=== PATIENT | female | born 1950 | race Caucasian/White ===

== ENCOUNTER 2021-05-19 17:10 | Inpatient (IN) | payer MEDICARE, OTHER ==
[2021-05-19] MEDS ORDERED: RX INFO: IV CONTRAST WAS GIVEN 1 EACH MISC MISCELLANE PRN (18:53)
[2021-05-19 19:22] LABS: Albumin 3.8 g/dL (3.5-5.0); Magnesium 2.3 mg/dL (1.6-2.3); Potassium 4.3 mmol/L (3.5-5.1); Total Bilirubin 0.2 mg/dL (0.2-1.3); Total Protein 6.3 g/dL (6.3-8.2)
[2021-05-19 19:24] LABS: Anisocytosis Slight; Basophils % (A) 1 %; Eosinophils # (A) 0.1 k/uL (0-0.7); Eosinophils % (A) 2 %; Hypochromasia Marked; Lymphocytes # (A) 1.8 k/uL (1.0-4.8); Lymphocytes % (A) 29 %; MCHC 30.2 g/dL (31.0-37.0); MCV 76.3 fL (80.0-100.0); Mean Platelet Volume 7.3; Microcytosis Slight; Monocytes # (A) 0.4 k/uL (0-1.0); Monocytes % (A) 7 %; Neutrophils # (A) 3.5 k/uL (1.3-7.7); Neutrophils % (A) 59 %; Platelet Count 475 k/uL (150-450); Poikilocytosis Slight; RBC 2.88 m/uL (3.80-5.40); RDW 17.2 % (11.5-15.5)
[2021-05-19 19:35] LABS: HGB 6.6 gm/dL (11.4-16.0); INR 0.9 (<1.2); Prothrombin Time 9.7 sec (9.0-12.0)
[2021-05-19 19:43] LABS: Partial Thromboplastin Time 20.4 sec (22.0-30.0)
--- NOTE | 2021-05-19 20:11 | CT ---
EXAMINATION TYPE: CT neck chest w con DATE OF EXAM: 05/19/2021 7:40 PM COMPARISON: None HISTORY: c/o neck pain, low HGB CT DLP: 1298.4 mGycm Automated exposure control for dose reduction was used. CONTRAST: CT scan of the neck and chest is performed following with IV Contrast, patient injected with 100 mL o f Isovue 300. Axial images are obtained, coronal and sagittal reformatted images are reviewed. FINDINGS: The chest shows no mass, there is no pleural or pericardial effusion. Subcentimeter nodule present in subpleural location on axial image 28 measures 5 to 6 mm right middle lobe, nodule on axia l image 27 is associated with the fissure and is felt likely to be benign. Indeterminate lung nodule present on axial image #12 measures 4 mm in the right upper lobe. There is a hiatal hernia with partial intrathoracic stomach. Aorta shows 3 super aortic branch vessel s. No mediastinal, axillary, or hilar adenopathy. Airway: No gross abnormality seen. Parotid/submandibular glands: No gross abnormality seen. Carotid/Vascular Structures: Unremarkable Osseous Structures: Degenerative disc changes are present visualized spine. Other: Upper abdomen shows questionable parapelvic cysts or pelvic caliectasis. There is a splenule s uspected in the splenic hilum. There is streak artifact due to patient's dental amalgam and earrings. Some atrophy noted within the left parietal lobe. IMPRESSION: Indeterminate pulmonary nodule, follow-up CT in 6-12 months recommended. Hiatal hernia w ith partial intrathoracic stomach. Additional findings above.
[2021-05-19] MEDS ORDERED: PANTOPRAZOLE 40 MG/10 ML VIAL IVP STA (20:21)
[2021-05-19] MEDS ORDERED: NALOXONE 0.4 MG/ML 1 ML VIAL IV PRN (20:51)
--- NOTE | 2021-05-19 20:57 | ED ---
General Adult HPI - General Chief complaint: Recheck/Abnormal Lab/Rx Stated complaint: low hemoglobin Time Seen by Provider: 05/19/21 18:34 Source: patient, RN notes reviewed, old records reviewed Mode of arrival: ambulatory Limitations: no limitations - History of Present Illness Initial comments: 71-year-old female who presents for evaluation of anemia. Patient had been told to present to the emergency department with a hemoglobin of 6.2. She is not on any anticoagulation. She states she has some mild exertional dyspnea. She had dark stool and had been on iron supplementation up to proximally 3 weeks ago. She's had no significant nausea or vomiting. No bright red rectal bleeding. No previous history of gastrointestinal hemorrhage. Additionally she had an outpatient x-ray that showed some evidence of tracheal deviation and is schedule d to receive CT of the neck and chest at an outside hospital tomorrow. She's had no difficulty swallowing. No change in speech. - Related Data Home Medications Medication Instructions Recorded Confirmed Ascorbic Acid [Vitamin C] 500 mg PO DAILY 05/19/21 05/19/21 Aspirin EC [Ecotrin Low Dose] 81 mg PO DAILY 05/19/21 05/19/21 Ferrous Sulfate [Feosol] 325 mg PO HS 05/19/21 05/19/21 Levothyroxine Sodium 125 mcg PO DAILY 05/19/21 05/19/21 Pravastatin Sodium [Pravachol] 20 mg PO DAILY 05/19/21 05/19/21 Vitamin E 400 unit PO HS 05/19/21 05/19/21 lisinopriL [Zestril] 10 mg PO DAILY 05/19/21 05/19/21 Allergies Allergy/AdvReac Type Severity Reaction Status Date / Time No Known Allergies Allergy Verified 05/19/21 20:18 Review of Systems ROS Statement: Those systems with pertinent positive or pertinent negative responses have been documented in the HPI. ROS Other: All systems not noted in ROS Statement are negative. Past Medical History Past Medical History: Hyperlipidemia, Thyroid Disorder History of Any Multi-Drug Resistant Organisms: None Reported Past Surgical History: Section Past Psychological History: No Psychological Hx Reported Smoking Status: Never smoker Past Alcohol Use History: None Reported Past Drug Use History: None Reported General Exam Limitations: no limitations General appearance: alert, in no apparent distress Head exam: Present: atraumatic, normocephalic Eye exam: Present: normal appearance, PERRL ENT exam: Present: normal exam Neck exam: Present: normal inspection. Absent: tenderness, meningismus Respiratory exam: Present: normal lung sounds bilaterally. Absent: respiratory distress, wheezes Cardiovascular Exam: Present: regular rate, normal rhythm GI/Abdominal exam: Present: soft. Absent: distended, tenderness Rectal exam: Present: normal inspection, heme (+) stool. Absent: black stool, bloody stool, hemorrhoids Extremities exam: Present: normal inspection, normal capillary refill Neurological exam: Present: alert, oriented X3, CN II-XII intact. Absent: motor sensory deficit Psychiatric exam: Present: normal affect, normal mood Skin exam: Present: warm, dry, intact. Absent: cyanosis, diaphoretic Course Vital Signs 05/19/21 18:18 Temperature 99.2 F Pulse Rate 77 Respiratory 18 Rate Blood Pressure 134/57 O2 Sat by Pulse 100 Oximetry EKG Findings - EKG Comments: EKG Findings:: EKG: Normal sinus rhythm, rate of 69, AR interval 162, QRS duration 86, QTC 435 Medical Decision Making - Medical Decision Making 71-year-old female with presented for evaluation of anemia, possible GI bleed. She has no melena, no bright red rectal bleeding. Her stool is Hemoccult positive. She has a hemoglobin of 6.6 which is microcytic. She is transfused one unit of packed RBCs in addition she is given Protonix. I discussed case with Dr. Santiago who will admit. The CT of her neck and chest has been ordered in the emergency department. There is no tracheal deviation, there is a pulmonary nodule which will require follow-up and there is a hiatal hernia. I discussed case with Dr. Munson who will see this patient in consultation regarding her GI bleed. Repeat hemoglobin has been ordered she will be continued on proton pump inhibitor. - Lab Data Result diagrams: 05/19/21 19:02 05/19/21 19:02 Lab Results 05/19/21 05/19/21 05/19/21 Range/Units 19:01 19:02 19:02 WBC 6.0 (3.8-10.6) k/uL RBC 2.88 L (3.80-5.40) m/uL Hgb 6.6 L* (11.4-16.0) gm/dL Hct 22.0 L (34.0-46.0) % MCV 76.3 L (80.0-100.0) fL MCH 23.0 L (25.0-35.0) pg MCHC 30.2 L (31.0-37.0) g/dL RDW 17.2 H (11.5-15.5) % Plt Count 475 H (150-450) k/uL MPV 7.3 Neutrophils % 59 % Lymphocytes % 29 % Monocytes % 7 % Eosinophils % 2 % Basophils % 1 % Neutrophils # 3.5 (1.3-7.7) k/uL Lymphocytes # 1.8 (1.0-4.8) k/uL Monocytes # 0.4 (0-1.0) k/uL Eosinophils # 0.1 (0-0.7) k/uL Basophils # 0.0 (0-0.2) k/uL Hypochromasia Marked Poikilocytosis Slight Anisocytosis Slight Microcytosis Slight PT 9.7 (9.0-12.0) sec INR 0.9 (<1.2) APTT 20.4 L (22.0-30.0) sec Sodium (137-145) mmol/L Potassium (3.5-5.1) mmol/L Chloride (98-107) mmol/L Carbon Dioxide (22-30) mmol/L Anion Gap mmol/L BUN (7-17) mg/dL Creatinine (0.52-1.04) mg/dL Est GFR (CKD-EPI)AfAm (>60 ml/min/1.73 sqM) Est GFR (CKD-EPI)NonAf (>60 ml/min/1.73 sqM) Glucose (74-99) mg/dL Plasma Lactic Acid Mauro (0.7-2.0) mmol/L Calcium (8.4-10.2) mg/dL Magnesium (1.6-2.3) mg/dL Total Bilirubin (0.2-1.3) mg/dL AST (14-36) U/L ALT (4-34) U/L Alkaline Phosphatase (38-126) U/L Troponin I (0.000-0.034) ng/mL Total Protein (6.3-8.2) g/dL Albumin (3.5-5.0) g/dL Stool Occult Blood (Negative) Blood Type Blood Type Confirm A Positive Blood Type Recheck Bld Type Recheck Status Antibody Screen Crossmatch Spec Expiration Date 05/19/21 05/19/21 05/19/21 Range/Units 19:02 19:02 19:02 WBC (3.8-10.6) k/uL RBC (3.80-5.40) m/uL Hgb (11.4-16.0) gm/dL Hct (34.0-46.0) % MCV (80.0-100.0) fL MCH (25.0-35.0) pg MCHC (31.0-37.0) g/dL RDW (11.5-15.5) % Plt Count (150-450) k/uL MPV Neutrophils % % Lymphocytes % % Monocytes % % Eosinophils % % Basophils % % Neutrophils # (1.3-7.7) k/uL Lymphocytes # (1.0-4.8) k/uL Monocytes # (0-1.0) k/uL Eosinophils # (0-0.7) k/uL Basophils # (0-0.2) k/uL Hypochromasia Poikilocytosis Anisocytosis Microcytosis PT (9.0-12.0) sec INR (<1.2) APTT (22.0-30.0) sec Sodium 135 L (137-145) mmol/L Potassium 4.3 (3.5-5.1) mmol/L Chloride 107 (98-107) mmol/L Carbon Dioxide 22 (22-30) mmol/L Anion Gap 6 mmol/L BUN 21 H (7-17) mg/dL Creatinine 0.80 (0.52-1.04) mg/dL Est GFR (CKD-EPI)AfAm 87 (>60 ml/min/1.73 sqM) Est GFR (CKD-EPI)NonAf 75 (>60 ml/min/1.73 sqM) Glucose 102 H (74-99) mg/dL Plasma Lactic Acid Mauro 0.9 (0.7-2.0) mmol/L Calcium 9.0 (8.4-10.2) mg/dL Magnesium 2.3 (1.6-2.3) mg/dL Total Bilirubin 0.2 (0.2-1.3) mg/dL AST 23 (14-36) U/L ALT 14 (4-34) U/L Alkaline Phosphatase 56 (38-126) U/L Troponin I <0.012 (0.000-0.034) ng/mL Total Protein 6.3 (6.3-8.2) g/dL Albumin 3.8 (3.5-5.0) g/dL Stool Occult Blood (Negative) Blood Type Blood Type Confirm Blood Type Recheck Bld Type Recheck Status Antibody Screen Crossmatch Spec Expiration Date 05/19/21 05/19/21 Range/Units 19:02 20:13 WBC (3.8-10.6) k/uL RBC (3.80-5.40) m/uL Hgb (11.4-16.0) gm/dL Hct (34.0-46.0) % MCV (80.0-100.0) fL MCH (25.0-35.0) pg MCHC (31.0-37.0) g/dL RDW (11.5-15.5) % Plt Count (150-450) k/uL MPV Neutrophils % % Lymphocytes % % Monocytes % % Eosinophils % % Basophils % % Neutrophils # (1.3-7.7) k/uL Lymphocytes # (1.0-4.8) k/uL Monocytes # (0-1.0) k/uL Eosinophils # (0-0.7) k/uL Basophils # (0-0.2) k/uL Hypochromasia Poikilocytosis Anisocytosis Microcytosis PT (9.0-12.0) sec INR (<1.2) APTT (22.0-30.0) sec Sodium (137-145) mmol/L Potassium (3.5-5.1) mmol/L Chloride (98-107) mmol/L Carbon Dioxide (22-30) mmol/L Anion Gap mmol/L BUN (7-17) mg/dL Creatinine (0.52-1.04) mg/dL Est GFR (CKD-EPI)AfAm (>60 ml/min/1.73 sqM) Est GFR (CKD-EPI)NonAf (>60 ml/min/1.73 sqM) Glucose (74-99) mg/dL Plasma Lactic Acid Mauro (0.7-2.0) mmol/L Calcium (8.4-10.2) mg/dL Magnesium (1.6-2.3) mg/dL Total Bilirubin (0.2-1.3) mg/dL AST (14-36) U/L ALT (4-34) U/L Alkaline Phosphatase (38-126) U/L Troponin I (0.000-0.034) ng/mL Total Protein (6.3-8.2) g/dL Albumin (3.5-5.0) g/dL Stool Occult Blood Positive H (Negative) Blood Type A Positive Blood Type Confirm Blood Type Recheck No Previous Record Bld Type Recheck Status CABO Indicated Antibody Screen NEGATIVE Crossmatch See Detail Spec Expiration Date 05/22/20212301 Disposition Clinical Impression: Symptomatic anemia, GI bleed Disposition: ADMITTED IP TO THIS [facility] Condition: Stable Is patient prescribed a controlled substance at d/c from ED?: No Referrals: Asha Santiago MD [Primary Care Provider] - 1-2 days Decision to Admit Reason: Admit from EC Decision Date: 05/19/21 Decision Time: 20:57
[2021-05-19] MEDS ORDERED: PANTOPRAZOLE 40 MG/10 ML VIAL IVP SCH (21:00)
[2021-05-20] MEDS: SODIUM CHLORIDE 0.9% 1,000 ML IV SCH ×4 (01:00→21:30)
[2021-05-20 06:34] LABS: Anisocytosis Slight; Basophils % (A) 1 %; Eosinophils # (A) 0.2 k/uL (0-0.7); Eosinophils % (A) 3 %; HCT 26.2 % (34.0-46.0); Hypochromasia Marked; Lymphocytes # (A) 1.8 k/uL (1.0-4.8); Lymphocytes % (A) 30 %; MCHC 30.3 g/dL (31.0-37.0); MCV 79.2 fL (80.0-100.0); Mean Platelet Volume 7.4; Microcytosis Slight; Monocytes # (A) 0.4 k/uL (0-1.0); Monocytes % (A) 7 %; Neutrophils # (A) 3.4 k/uL (1.3-7.7); Neutrophils % (A) 57 %; Platelet Count 461 k/uL (150-450); Poikilocytosis Moderate; RBC 3.31 m/uL (3.80-5.40); RDW 17.4 % (11.5-15.5)
[2021-05-20 06:37] LABS: Albumin 3.8 g/dL (3.5-5.0); Calcium 9.6 mg/dL (8.4-10.2); Potassium 4.8 mmol/L (3.5-5.1); Total Bilirubin 0.8 mg/dL (0.2-1.3); Total Protein 6.4 g/dL (6.3-8.2)
[2021-05-20] MEDS: lisinopriL 10 MG TAB PO SCH (11:17)
[2021-05-20] MEDS: PANTOPRAZOLE 40 MG/10 ML VIAL IVP SCH ×2 (11:18→21:21)
--- NOTE | 2021-05-20 11:31 | P.GSCN ---
History of Present Illness Consult date: 05/20/21 History of present illness: CHIEF COMPLAINT: Low hemoglobin HISTORY OF PRESENT ILLNESS: This is a 71-year-old female who came into the ER due to anemia. She was found to have a hemoglobin of 6.2 and her outpatient labs. Patient reports over the last month she has noted to be more short of breath with exertion. She had been having black stools but had been on iron. She stopped taking iron 3 weeks ago and still had black stools. She has pain in the middle of her abdomen after eating with reflux. Her hemoglobin on admission was 6.6 after a unit of blood it is gone up to 8. She reports having a normal hemoglobin around 16 back in October. She takes aspirin at home. She denies any NSAID use. She had a CT scan of the chest and neck completed due to a history of tracheal deviation. It did note a hiatal hernia with partial intrathoracic stomach. Patient denies any heart disease history or CHF. Denies any prior history of anemia. She denies any nausea or vomiting. Denies any history of stomach ulcers. No prior history of EGD. She reports last colonoscopy was about 5 years ago and reports that it was normal. PAST MEDICAL HISTORY: Hyperlipidemia, hypothyroidism and hypertension PAST SURGICAL HISTORY: MEDICATIONS: See list. ALLERGIES: See list. SOCIAL HISTORY: No illicit drug use. REVIEW OF SYSTEMS: CONSTITUTIONAL: Denies fever or chills. HEENT: Denies blurred vision, vision changes, or eye pain. Denies hemoptysis CARDIOVASCULAR: Denies chest pain or pressure. RESPIRATORY: No shortness of breath. GASTROINTESTINAL: See HPI for pertinent findings HEMATOLOGIC: Denies bleeding disorders. GENITOURINARY: Denies any blood in urine or increased urinary frequency. SKIN: Denies pruitis. Denies rash. PHYSICAL EXAM: VITAL SIGNS: Reviewed GENERAL: Well-developed in no acute distress. HEENT: No sclera icterus. Extraocular movements grossly intact. Moist buccal mucosa. Head is atraumatic, normocephalic. No nasal drainage. ABDOMEN: Soft. Nondistended. Middle abdominal tenderness near the umbilicus with palpation NEUROLOGIC: Alert and oriented. Cranial nerves II through XII grossly intact. LABORATORY DATA: WBC is 6.0 hemoglobin 6.6 up to 8.0 platelets 461 INR 0.9 Sodium 136 potassium 4.8 BUN 17 creatinine 0.82 Glucose 105 Lactic acid 0.9 LFTs normal stool for occult blood positive COVID-19 undetected IMAGING: computed tomography scan of the chest and neck shows indeterminate pulmonary nodule follow-up CT in 6-12 months recommended. Hiatal hernia with partial intrathoracic stomach. ASSESSMENT: 1. Acute GI bleed 2. Acute blood loss anemia secondary to GI bleed. Patient is status post 1 uni t of blood. PLAN: -EGD and colonoscopy planned for 05/23/[address] Munson -Start patient on full liquids -Hold aspirin -Continue PPI -Continue to monitor hemoglobin -Continue monitor for any signs or symptoms of bleeding Thank you for this consultation Physician Shot Peening Operator note has been reviewed by physician. Signing provider agrees with the documented findings, assessment, and plan of care. Past Medical History Past Medical History: Hyperlipidemia, Hypertension, Thyroid Disorder Additional Past Medical History / Comment(s): Pt states she has had anemia/on iron for years, fall in December 2020 with R sided neck pain/rangel/vertigo which she states corrected with chiropractic treatments except left with some decreased ROM with her neck, recent abnormal chest xray/tracheal deviation, states feels full after few bites of food/burps and occasionally food comes up, recently had stopped iron po d/t metallic taste in mouth, hypothyroid, R knee pain after injury years ago. History of Any Multi-Drug Resistant Organisms: None Reported Past Surgical History: Breast Surgery, Section, Tonsillectomy, Tubal Ligation Additional Past Surgical History / Comment(s): L breast benign bx, colonoscopy approximately 5 yrs ago/normal. Past Anesthesia/Blood Transfusion Reactions: No Reported Reaction Additional Past Anesthesia/Blood Transfusion Reaction / Comm: Pt received blood 05/19/21 without reaction. Smoking Status: Never smoker - Past Family History Father Family Medical History: Myocardial Infarction (NC) Additional Family Medical History / Comment(s): Father with his 7th NC, he had his first NC in his 40s. Brother(s) Family Medical History: Myocardial Infarction (NC) Additional Family Medical History / Comment(s): Brother had 2 MIs and with his 2nd one at the age of 46 yrs. Medications and Allergies Home Medications Medication Instructions Recorded Confirmed Type Ascorbic Acid [Vitamin C] 500 mg PO DAILY 05/19/21 05/19/21 History Aspirin EC [Ecotrin Low Dose] 81 mg PO DAILY 05/19/21 05/19/21 History Ferrous Sulfate [Feosol] 325 mg PO HS 05/19/21 05/19/21 History Levothyroxine Sodium 125 mcg PO DAILY 05/19/21 05/19/21 History Pravastatin Sodium [Pravachol] 20 mg PO DAILY 05/19/21 05/19/21 History Vitamin E 400 unit PO HS 05/19/21 05/19/21 History lisinopriL [Zestril] 10 mg PO DAILY 05/19/21 05/19/21 History Allergies Allergy/AdvReac Type Severity Reaction Status Date / Time No Known Allergies Allergy Verified 05/19/21 20:18 Surgical - Exam Vital Signs Temp Pulse Resp BP Pulse Ox 99.2 F 77 18 134/57 100 05/19/21 18:18 05/19/21 18:18 05/19/21 18:18 05/19/21 18:18 05/19/21 18:18 Results - Labs 05/20/21 05:40 05/20/21 05:40 Abnormal Lab Results - Last 24 Hours (Table) 05/19/21 05/19/21 05/19/21 Range/Units 19:02 19:02 19:02 RBC 2.88 L (3.80-5.40) m/uL Hgb 6.6 L* (11.4-16.0) gm/dL Hct 22.0 L (34.0-46.0) % MCV 76.3 L (80.0-100.0) fL MCH 23.0 L (25.0-35.0) pg MCHC 30.2 L (31.0-37.0) g/dL RDW 17.2 H (11.5-15.5) % Plt Count 475 H (150-450) k/uL APTT 20.4 L (22.0-30.0) sec Sodium 135 L (137-145) mmol/L BUN 21 H (7-17) mg/dL Glucose 102 H (74-99) mg/dL Stool Occult Blood (Negative) Crossmatch 05/19/21 05/19/21 05/20/21 Range/Units 19:02 20:13 05:40 RBC 3.31 L (3.80-5.40) m/uL Hgb 8.0 L (11.4-16.0) gm/dL Hct 26.2 L (34.0-46.0) % MCV 79.2 L (80.0-100.0) fL MCH 24.0 L (25.0-35.0) pg MCHC 30.3 L (31.0-37.0) g/dL RDW 17.4 H (11.5-15.5) % Plt Count 461 H (150-450) k/uL APTT (22.0-30.0) sec Sodium (137-145) mmol/L BUN (7-17) mg/dL Glucose (74-99) mg/dL Stool Occult Blood Positive H (Negative) Crossmatch See Detail 05/20/21 Range/Units 05:40 RBC (3.80-5.40) m/uL Hgb (11.4-16.0) gm/dL Hct (34.0-46.0) % MCV (80.0-100.0) fL MCH (25.0-35.0) pg MCHC (31.0-37.0) g/dL RDW (11.5-15.5) % Plt Count (150-450) k/uL APTT (22.0-30.0) sec Sodium 136 L (137-145) mmol/L BUN (7-17) mg/dL Glucose 105 H (74-99) mg/dL Stool Occult Blood (Negative) Crossmatch Diabetes panel 05/19/21 05/20/21 Range/Units 19:02 05:40 Sodium 135 L 136 L (137-145) mmol/L Potassium 4.3 4.8 (3.5-5.1) mmol/L Chloride 107 107 (98-107) mmol/L Carbon Dioxide 22 24 (22-30) mmol/L BUN 21 H 17 (7-17) mg/dL Creatinine 0.80 0.82 (0.52-1.04) mg/dL Glucose 102 H 105 H (74-99) mg/dL Calcium 9.0 9.6 (8.4-10.2) mg/dL AST 23 22 (14-36) U/L ALT 14 14 (4-34) U/L Alkaline Phosphatase 56 52 (38-126) U/L Total Protein 6.3 6.4 (6.3-8.2) g/dL Albumin 3.8 3.8 (3.5-5.0) g/dL Calcium panel 05/19/21 05/20/21 Range/Units 19:02 05:40 Calcium 9.0 9.6 (8.4-10.2) mg/dL Albumin 3.8 3.8 (3.5-5.0) g/dL Pituitary panel 05/19/21 05/20/21 Range/Units 19:02 05:40 Sodium 135 L 136 L (137-145) mmol/L Potassium 4.3 4.8 (3.5-5.1) mmol/L Chloride 107 107 (98-107) mmol/L Carbon Dioxide 22 24 (22-30) mmol/L BUN 21 H 17 (7-17) mg/dL Creatinine 0.80 0.82 (0.52-1.04) mg/dL Glucose 102 H 105 H (74-99) mg/dL Calcium 9.0 9.6 (8.4-10.2) mg/dL Adrenal panel 05/19/21 05/20/21 Range/Units 19:02 05:40 Sodium 135 L 136 L (137-145) mmol/L Potassium 4.3 4.8 (3.5-5.1) mmol/L Chloride 107 107 (98-107) mmol/L Carbon Dioxide 22 24 (22-30) mmol/L BUN 21 H 17 (7-17) mg/dL Creatinine 0.80 0.82 (0.52-1.04) mg/dL Glucose 102 H 105 H (74-99) mg/dL Calcium 9.0 9.6 (8.4-10.2) mg/dL Total Bilirubin 0.2 0.8 (0.2-1.3) mg/dL AST 23 22 (14-36) U/L ALT 14 14 (4-34) U/L Alkaline Phosphatase 56 52 (38-126) U/L Total Protein 6.3 6.4 (6.3-8.2) g/dL Albumin 3.8 3.8 (3.5-5.0) g/dL
--- NOTE | 2021-05-20 11:36 | P.HPIM ---
History of Present Illness H&P Date: 05/20/21 Chief Complaint: Abnormal labs, hemoglobin of 6.6 This is a pleasant 71-year-old lady, well-known to my practice, who was having some shortness of breath, apparently this started 2 months ago, she has a known history of hypertension and hypothyroidism, she was in [place], celebrating her 7 TS per day. 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 Patient had strawberry duck daily, and is on aspirin, takes Aleve when necessary for arthritis pain, when she tripped and fell in December, and was seeing a chiropractor for this. She was seen in the clinic, for which labs were done, x-ray was done at the chiropractor, for which it was noted that she has some tracheal deviation. And a large hiatal hernia. She also has some workup for this, to include a CAT scan of the chest and neck., hemoglobin was 6.2 she has had coffee-ground emesis, in January none since, patient cannot express the call of her stools, her last colonoscopy was [address] Thurman, and was normal. No family history of colon cancer, and was scheduled to have a 10 year surveillance. However this time, with the blood loss anemia, she was requested to be seen in the emergency room, to be worked up. Next Emergency room, hemoglobin was 6.6, INR 0.9, sodium 135, creatinine of 0.8 albu min is normal, Hemoccult is positive, and milian virus negative. She required one unit of packed red blood cells, there is microcytosis and hypochromasia and laboratories, troponin is negative. Total bili and other liver function test is normal, consults were made with Dr. 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 Munson is covering Review of Systems Constitutional: Reports as per HPI, Denies anorexia, Denies chills, Denies chronic headaches, Denies chronic pain, Denies daytime sleepiness, Denies fatigue, Denies fever, Denies lethargy, Denies malaise, Denies night sweats, Denies poor appetite, Denies sweats, Denies weakness, Denies weight gain, Denies weight loss Ears, nose, mouth and throat: Reports as per HPI Cardiovascular: Reports dyspnea on exertion, Denies high blood pressure, Denies irregular heart beat, Denies palpitations Respiratory: Reports as per HPI, Denies cough, Denies cough with sputum, Denies dyspnea, Denies excessive sputum Gastrointestinal: Denies as per HPI, Denies abdominal pain, Denies belching, Denies bloating, Denies BRBPR, Denies change in bowel habits, Denies coffee ground emesis, Denies constipation, Denies diarrhea, Denies dyspepsia, Denies early satiety, Denies excessive gas, Denies heartburn, Denies hematemesis, Denies hematochezia, Denies indigestion, Denies jaundice, Denies lactose intolerance, Denies loss of appetite, Denies melena, Denies nausea, Denies vomiting Genitourinary: Reports as per HPI, Denies abnormal vaginal bleeding, Denies decreased libido, Denies difficulty conceiving, Denies difficulty voiding, Denies dysmenorrhea, Denies dyspareunia, Denies dysuria, Denies flank pain, Denies genital sores, Denies hematuria, Denies hot flashes, Denies incomplete emptying, Denies kidney stones, Denies menorrhagia, Denies mixed incontinence, Denies nocturia, Denies pelvic pain, Denies post void dribbling, Denies , Denies prolapse symptoms, Denies stress incontinence, Denies urge incontinence, Denies urgency, Denies urinary frequency, Denies vaginal dischar ge, Denies vaginal dryness, Denies vaginal itching, Denies vaginal odor Menstruation: Reports as per HPI, Reports postmenopausal Musculoskeletal: Reports as per HPI, Denies arm numbness/tingling, Denies atrophy, Denies fractures, Denies frequent falls, Denies gait dysfunction, Denies hot joints, Denies leg numbness/tingling, Denies limitation of motion, Denies loss of height, Denies low back pain, Denies morning stiffness, Denies muscle cramps, Denies muscle weakness, Denies myalgias, Denies neck pain, Denies neck stiffness, Denies prior amputations, Denies redness of joints, Denies shooting arm pain, Denies shooting leg pain Neurological: Reports as per HPI, Reports weakness, Denies change in mentation, Denies change in speech, Denies double vision, Denies gait dysfunction, Denies motor disturbance, Denies visual changes Psychiatric: Reports as per HPI Endocrine: Reports as per HPI, Denies cold intolerance, Denies deepening of the voice, Denies excessive sweating, Denies excessive thirst, Denies fatigue, Denies flushing, Denies heat intolerance, Denies high blood sugars, Denies increase in ring/shoe/hat size, Denies low blood sugars, Denies nocturia, Denies palpitations, Denies polydipsia, Denies polyphagia, Denies polyuria, Denies proptosis, Denies recent glucocorticoid use, Denies thyroid mass, Denies weight change Hematologic/Lymphatic: Reports as per HPI Allergic/Immunologic: Reports as per HPI Past Medical History Past Medical History: Hyperlipidemia, Hypertension, Thyroid Disorder Additional Past Medical History / Comment(s): Pt states she has had anemia/on iron for years, fall in December 2020 with R sided neck pain/rangel/vertigo which she states corrected with chiropractic treatments except left with some decreased ROM with her neck, recent abnormal chest xray/tracheal deviation, states feels full after few bites of food/burps and occasionally food comes up, recently had stopped iron po d/t metallic taste in mouth, hypothyroid, R knee pain after injury years ago. History of Any Multi-Drug Resistant Organisms: None Reported Past Surgical History: Breast Surgery, Section, Tonsillectomy, Tubal Ligation Additional Past Surgical History / Comment(s): L breast benign bx, colonoscopy approximately 5 yrs ago/normal. Past Anesthesia/Blood Transfusion Reactions: No Reported Reaction Additional Past Anesthesia/Blood Transfusion Reaction / Comment(s): Pt received blood 05/19/21 without reaction. Smoking Status: Never smoker - Past Family History Father Family Medical History: Myocardial Infarction (LA) Additional Family Medical History / Comment(s): Father with his 7th LA, he had his first LA in his 40s. Brother(s) Family Medical History: Myocardial Infarction (LA) Additional Family Medical History / Comment(s): Brother had 2 MIs and with his 2nd one at the age of 46 yrs. Medications and Allergies Home Medications Medication Instructions Recorded Confirmed Type Ascorbic Acid [Vitamin C] 500 mg PO DAILY 05/19/21 05/19/21 History Aspirin EC [Ecotrin Low Dose] 81 mg PO DAILY 05/19/21 05/19/21 History Ferrous Sulfate [Feosol] 325 mg PO HS 05/19/21 05/19/21 History Levothyroxine Sodium 125 mcg PO DAILY 05/19/21 05/19/21 History Pravastatin Sodium [Pravachol] 20 mg PO DAILY 05/19/21 05/19/21 History Vitamin E 400 unit PO HS 05/19/21 05/19/21 History lisinopriL [Zestril] 10 mg PO DAILY 05/19/21 05/19/21 History Allergies Allergy/AdvReac Type Severity Reaction Status Date / Time No Known Allergies Allergy Verified 05/19/21 20:18 Physical Exam Vitals: Vital Signs Temp Pulse Resp BP Pulse Ox 05/20/21 11:21 97.8 F 62 18 146/65 98 05/20/21 06:56 62 18 130/63 98 05/20/21 04:00 66 18 132/70 94 L 05/20/21 03:16 96 18 143/83 98 05/20/21 02:02 98.4 F 71 18 138/68 97 05/19/21 23:00 98.7 F 69 16 115/57 98 05/19/21 22:45 98.6 F 72 16 108/62 98 05/19/21 22:30 98.5 F 68 16 123/61 98 05/19/21 22:15 98.6 F 75 16 120/63 99 05/19/21 21:59 98.2 F 87 20 129/61 99 05/19/21 21:49 98.5 F 74 18 127/65 99 05/19/21 18:18 99.2 F 77 18 134/57 100 Intake and Output 05/19/21 05/20/21 05/20/21 22:59 06:59 14:59 Intake Total 0 310 Balance 0 310 Intake: Blood Product 0 310 Rc As-1 Unit 0 310 [id number] Other: Weight 99.79 kg 99.79 kg - Constitutional General appearance: cooperative, no acute distress - EENT Eyes: EOMI, PERRLA, dentition normal, normal appearance ENT: NA/AT, normal oropharynx - Neck Neck: normal ROM - Respiratory Respiratory: bilateral: CTA, negative: diminished, dullness, rales - Cardiovascular Rhythm: regular Heart sounds: normal: S1, S2 - Gastrointestinal General gastrointestinal: normal bowel sounds - Integumentary Integumentary: pale - Neurologic Neurologic: CNII-XII intact - Musculoskeletal Musculoskeletal: gait normal, strength equal bilaterally - Psychiatric Psychiatric: A&O x's 3, appropriate affect Results CBC & Chem 7: 05/20/21 05:40 05/20/21 05:40 Labs: Abnormal Lab Results - Last 24 Hours (Table) 05/19/21 05/19/21 05/19/21 Range/Units 19:02 19:02 19:02 RBC 2.88 L (3.80-5.40) m/uL Hgb 6.6 L* (11.4-16.0) gm/dL Hct 22.0 L (34.0-46.0) % MCV 76.3 L (80.0-100.0) fL MCH 23.0 L (25.0-35.0) pg MCHC 30.2 L (31.0-37.0) g/dL RDW 17.2 H (11.5-15.5) % Plt Count 475 H (150-450) k/uL APTT 20.4 L (22.0-30.0) sec Sodium 135 L (137-145) mmol/L BUN 21 H (7-17) mg/dL Glucose 102 H (74-99) mg/dL Stool Occult Blood (Negative) Crossmatch 05/19/21 05/19/21 05/20/21 Range/Units 19:02 20:13 05:40 RBC 3.31 L (3.80-5.40) m/uL Hgb 8.0 L (11.4-16.0) gm/dL Hct 26.2 L (34.0-46.0) % MCV 79.2 L (80.0-100.0) fL MCH 24.0 L (25.0-35.0) pg MCHC 30.3 L (31.0-37.0) g/dL RDW 17.4 H (11.5-15.5) % Plt Count 461 H (150-450) k/uL APTT (22.0-30.0) sec Sodium (137-145) mmol/L BUN (7-17) mg/dL Glucose (74-99) mg/dL Stool Occult Blood Positive H (Negative) Crossmatch See Detail 05/20/21 Range/Units 05:40 RBC (3.80-5.40) m/uL Hgb (11.4-16.0) gm/dL Hct (34.0-46.0) % MCV (80.0-100.0) fL MCH (25.0-35.0) pg MCHC (31.0-37.0) g/dL RDW (11.5-15.5) % Plt Count (150-450) k/uL APTT (22.0-30.0) sec Sodium 136 L (137-145) mmol/L BUN (7-17) mg/dL Glucose 105 H (74-99) mg/dL Stool Occult Blood (Negative) Crossmatch Laboratory Results WBC 6.0 k/uL (3.8-10.6) 05/20/21 05:40 RBC 3.31 m/uL (3.80-5.40) L 05/20/21 05:40 Hgb 8.0 gm/dL (11.4-16.0) L 05/20/21 05:40 Hct 26.2 % (34.0-46.0) L 05/20/21 05:40 MCV 79.2 fL (80.0-100.0) L 05/20/21 05:40 MCH 24.0 pg (25.0-35.0) L 05/20/21 05:40 MCHC 30.3 g/dL (31.0-37.0) L 05/20/21 05:40 RDW 17.4 % (11.5-15.5) H 05/20/21 05:40 Plt Count 461 k/uL (150-450) H 05/20/21 05:40 MPV 7.4 05/20/21 05:40 Neutrophils % 57 % 05/20/21 05:40 Lymphocytes % 30 % 05/20/21 05:40 Monocytes % 7 % 05/20/21 05:40 Eosinophils % 3 % 05/20/21 05:40 Basophils % 1 % 05/20/21 05:40 Neutrophils # 3.4 k/uL (1.3-7.7) 05/20/21 05:40 Lymphocytes # 1.8 k/uL (1.0-4.8) 05/20/21 05:40 Monocytes # 0.4 k/uL (0-1.0) 05/20/21 05:40 Eosinophils # 0.2 k/uL (0-0.7) 05/20/21 05:40 Basophils # 0.0 k/uL (0-0.2) 05/20/21 05:40 Hypochromasia Marked 05/20/21 05:40 Poikilocytosis Moderate 05/20/21 05:40 Anisocytosis Slight 05/20/21 05:40 Microcytosis Slight 05/20/21 05:40 PT 9.7 sec (9.0-12.0) 05/19/21 19:02 INR 0.9 (<1.2) 05/19/21 19:02 APTT 20.4 sec (22.0-30.0) L 05/19/21 19:02 Sodium 136 mmol/L (137-145) L 05/20/21 05:40 Potassium 4.8 mmol/L (3.5-5.1) 05/20/21 05:40 Chloride 107 mmol/L (98-107) 05/20/21 05:40 Carbon Dioxide 24 mmol/L (22-30) 05/20/21 05:40 Anion Gap 5 mmol/L 05/20/21 05:40 BUN 17 mg/dL (7-17) 05/20/21 05:40 Creatinine 0.82 mg/dL (0.52-1.04) 05/20/21 05:40 Est GFR (CKD-EPI)AfAm 84 (>60 ml/min/1.73 sqM) 05/20/21 05:40 Est GFR (CKD-EPI)NonAf 73 (>60 ml/min/1.73 sqM) 05/20/21 05:40 Glucose 105 mg/dL (74-99) H 05/20/21 05:40 Plasma Lactic Acid Mauro 0.9 mmol/L (0.7-2.0) 05/19/21 19:02 Calcium 9.6 mg/dL (8.4-10.2) 05/20/21 05:40 Magnesium 2.3 mg/dL (1.6-2.3) 05/19/21 19:02 Total Bilirubin 0.8 mg/dL (0.2-1.3) 05/20/21 05:40 AST 22 U/L (14-36) 05/20/21 05:40 ALT 14 U/L (4-34) 05/20/21 05:40 Alkaline Phosphatase 52 U/L (38-126) 05/20/21 05:40 Troponin I <0.012 ng/mL (0.000-0.034) 05/19/21 19:02 Total Protein 6.4 g/dL (6.3-8.2) 05/20/21 05:40 Albumin 3.8 g/dL (3.5-5.0) 05/20/21 05:40 Stool Occult Blood Positive (Negative) H 05/19/21 20:13 Coronavirus (PCR) Not Detected (Not Detectd) 05/20/21 03:50 Blood Type A Positive 05/19/21 19:02 Blood Type Confirm A Positive 05/19/21 19:01 Blood Type Recheck No Previous Record 05/19/21 19:02 Bld Type Recheck Status CABO Indicated 05/19/21 19:02 Antibody Screen NEGATIVE 05/19/21 19:02 Crossmatch See Detail 05/19/21 19:02 Spec Expiration Date 05/22/2021230105/19/21 19:02 Thrombosis Risk Factor Assmnt - Choose All That Apply Any of the Below Risk Factors Present?: Yes Each Factor Represents 1 point: Obesity (BMI >25) Other Risk Factors: Yes Each Risk Factor Represents 2 Points: Age 61-74 years Other congenital or acquired thrombophilia - If yes, enter type in comment: No Thrombosis Risk Factor Assessment Total Risk Factor Score: 3 Thrombosis Risk Factor Assessment Level: Moderate Risk Assessment and Plan Plan: 1. Symptomatic blood loss anemia, suspect upper GI bleed, with exposure to NSAIDs and aspirin, aspirin is discontinued, for maintenance regimen, based on new studies for aspirin for secondary prevention, patient was in consultation by general surgery, for an EGD patient would be on PPI Protonix 40 mg twice a day, status post 1 unit of packed red blood cells, iron studies to be done, however this would not reflect true value of hemoglobin, will be started on IV iron infusion, for the next 2 days monitor CBC 2. Hypothyroidism, for which she is on levothyroxine, 125 g daily next 3. Hypertension on lisinopril 10 mg daily 4 hyperlipidemia, on the pravastatin l 20 g daily 5. Abnormal findings in chest CT, there is no tracheal deviation, however has indeterminate pulmonary nodule on the right, recommendation for CAT scan to be repeated in 6-12 months no tracheal deviation noted 6. Hiatal hernia with partial intertarsal thoracic stomach with intermittent indigestion GERD precautions, general surgery to see, for any future Melita fundoplication if needed 5. History of colonoscopy 5 years ago, was given [address] Ahmadi patient denies any hematochezia 6. GI prophylaxis, on PPI 7. DVT prophylaxis, early ambulation, no chemical prophylaxis secondary to GI bleed
[2021-05-20] MEDS: SODIUM FERRIC GLUCONAT-SUCROSE 125 MG in SODIUM CHLORIDE 0.9% 100 ML IVPB SCH (12:31)
[2021-05-20 20:54] LABS: % Iron Saturation 3.24 (12.00-45.00); Ferritin 10.8 ng/mL (10.0-291.0)
[2021-05-20] MEDS: FERROUS SULFATE 325 MG TAB PO SCH (21:21)
[2021-05-21] MEDS: LEVOTHYROXINE 125 MCG TAB PO SCH (05:32)
[2021-05-21] MEDS: SODIUM CHLORIDE 0.9% 1,000 ML IV SCH ×4 (05:33→20:21)
[2021-05-21 06:45] LABS: Anisocytosis Slight; HCT 23.7 % (34.0-46.0); HGB 7.2 gm/dL (11.4-16.0); Hypochromasia Marked; MCH 24.6 pg (25.0-35.0); MCHC 30.3 g/dL (31.0-37.0); MCV 81.2 fL (80.0-100.0); Mean Platelet Volume 7.2; Microcytosis Slight; Platelet Count 362 k/uL (150-450); Poikilocytosis Slight; RBC 2.92 m/uL (3.80-5.40); RDW 17.8 % (11.5-15.5); WBC 3.8 k/uL (3.8-10.6)
[2021-05-21] MEDS: lisinopriL 10 MG TAB PO SCH (08:31)
[2021-05-21] MEDS: PRAVASTATIN SODIUM 20 MG TAB PO SCH (08:31)
[2021-05-21] MEDS: PANTOPRAZOLE 40 MG/10 ML VIAL IVP SCH ×2 (08:31→20:17)
[2021-05-21] MEDS: DOCUSATE 100 MG CAP PO SCH (09:59)
[2021-05-21] MEDS: SENNOSIDES 8.6 MG TAB PO SCH (09:59)
[2021-05-21] MEDS: SODIUM FERRIC GLUCONAT-SUCROSE 125 MG in SODIUM CHLORIDE 0.9% 100 ML IVPB SCH (09:59)
--- NOTE | 2021-05-21 11:09 | P.PN ---
Progress Note - Text Progress Note Date: 05/21/21 The patient maintained stable. She's had no further active GI bleed. He will was 7.2. He will will be rechecked later today. On exam vital signs are stable. Abdomen soft. Patient will be prepped for colonoscopy EGD tomorrow. She will undergo the procedure on Sunday.
--- NOTE | 2021-05-21 12:50 | P.PN ---
Subjective Progress Note Date: 05/21/21 This is a pleasant 71-year-old lady, well-known to my practice, who was having some shortness of breath, apparently this started 2 months ago, she has a known history of hypertension and hypothyroidism, she was in [place], celebrating her 7 TS per day. 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 Patient had strawberry duck daily, and is on aspirin, takes Aleve when necessary for arthritis pain, when she tripped and fell in December, and was seeing a chiropractor for this. She was seen in the clinic, for which labs were done, x-ray was done at the chiropractor, for which it was noted that she has some tracheal deviation. And a large hiatal hernia. She also has some workup for this, to include a CAT scan of the chest and neck., hemoglobin was 6.2 she has had coffee-ground emesis, in January none since, patient cannot express the call of her stools, her last colonoscopy was [address] Thurman, and was normal. No family history of colon cancer, and was scheduled to have a 10 year surveillance. However this time, with the blood loss anemia, she was requested to be seen in the emergency room, to be worked up. Next Emergency room, hemoglobin was 6.6, INR 0.9, sodium 135, creatinine of 0.8 albumin is normal, Hemoccult is positive, and milian virus negative. She required one unit of packed red blood cells, there is microcytosis and hypochromasia and laboratories, troponin is negative. Total bili and other liver function test is normal, consults were made with Dr. 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 Munson is covering 05/21: Patient examined at the bedside. Patient expresses she wants to be discharged home today, discussed that her hemoglobin has dropped to 7.2 today. She is agreeable to stay, will repeat another hemoglobin later on today. If hemoglobin drops further she may require another blood transfusion Surgery plans to do upper and lower GI studies. Patient reports she had a large hard bowel movement yesterday that did have bright red blood. She was started on stool softeners. Her vitals are stable she is afebrile with a temperature of 98.0, heart rate of 62, blood pressure 126/67, 96% on room air. Objective - Vital Signs Vital signs: Vital Signs Temp 98 F 05/21/21 11:49 Pulse 62 05/21/21 11:49 Resp 18 05/21/21 11:49 BP 126/67 05/21/21 11:49 Pulse Ox 96 05/21/21 11:49 Intake & Output 05/20/21 05/21/21 05/21/21 18:59 06:59 18:59 Intake Total 1950 Balance 1950 Weight 99.79 kg 102.5 kg Intake: Intake, IV Titration 1949 Amount Sodium Chloride 0.9% 1, 1950 000 ml @ 130 mls/hr IV . [id number] [facility] Rx#:[id number] Other: # Voids 3 - Constitutional General appearance: Present: cooperative, no acute distress, obese - EENT Eyes: Present: EOMI, PERRLA, normal appearance ENT: Present: hearing grossly normal, normal oropharynx - Respiratory Respiratory: bilateral: CTA, negative: diminished, dullness, rales, rhonchi - Cardiovascular Rhythm: regular Heart sounds: normal: S1, S2 - Gastrointestinal General gastrointestinal: Present: normal bowel sounds, soft. Absent: distended, hepatomegaly, organomegaly, tenderness - Neurologic Neurologic: Present: CNII-XII intact, focal deficits - Musculoskeletal Musculoskeletal: Present: gait normal, strength equal bilaterally - Psychiatric Psychiatric: Present: A&O x's 3, appropriate affect, intact judgment & insight - Labs CBC & Chem 7: 05/21/21 06:12 05/20/21 05:40 Labs: Abnormal Lab Results - Last 24 Hours (Table) 05/19/21 05/20/21 05/21/21 Range/Units 19:02 05:40 06:12 RBC 2.92 L (3.80-5.40) m/uL Hgb 7.2 L (11.4-16.0) gm/dL Hct 23.7 L (34.0-46.0) % MCH 24.6 L (25.0-35.0) pg MCHC 30.3 L (31.0-37.0) g/dL RDW 17.8 H (11.5-15.5) % Iron 16 L (50-170) ug/dL TIBC 503 H (228-460) ug/dL % Saturation 3.24 L (12.00-45.00) Transferrin 359.0 H (204.0-354.0) mg/dL Crossmatch See Detail Assessment and Plan Plan: 1. Symptomatic blood loss anemia, suspect upper GI bleed, with exposure to NSAIDs and aspirin, aspirin is discontinued. General surgery is on consult and plans for an EGD and colonoscopy. Will continue with Protonix 40 mg twice a day, status post 1 unit of packed red blood cells. Hemoglobin did drop again today to 7.2, will repeat another CBC later on today, may need another transfusion 2. Hypothyroidism, for which she is on levothyroxine, 125 g daily next 3. Hypertension on lisinopril 10 mg daily 4 hyperlipidemia, on the pravastatin l 20 g daily 5. Abnormal findings in chest CT, there is no tracheal deviation, however has indeterminate pulmonary nodule on the right, recommendation for CAT scan to be repeated in 6-12 months no tracheal deviation noted 6. Hiatal hernia with partial intertarsal thoracic stomach with intermittent indigestion GERD precautions, general surgery to see, for any future Melita fundoplication if needed 5. History of colonoscopy 5 years ago, was given [address] Ahmadi patient denies any hematochezia 6. GI prophylaxis, on PPI 7. DVT prophylaxis, early ambulation, no chemical prophylaxis secondary to GI bleed The above impression and plan of care have been discussed and directed by signing physician. Ivett Lazcano nurse practitioner acting as scribe for signing physician.
[2021-05-21 19:01] LABS: Anisocytosis Slight; Basophils % (A) 1 %; Eosinophils # (A) 0.2 k/uL (0-0.7); Eosinophils % (A) 3 %; HCT 26.4 % (34.0-46.0); HGB 7.9 gm/dL (11.4-16.0); Hypochromasia Marked; Lymphocytes # (A) 1.6 k/uL (1.0-4.8); Lymphocytes % (A) 28 %; MCH 24.1 pg (25.0-35.0); MCHC 29.9 g/dL (31.0-37.0); MCV 80.7 fL (80.0-100.0); Mean Platelet Volume 7.1; Microcytosis Slight; Monocytes # (A) 0.4 k/uL (0-1.0); Monocytes % (A) 7 %; Neutrophils # (A) 3.3 k/uL (1.3-7.7); Neutrophils % (A) 58 %; Platelet Count 430 k/uL (150-450); Poikilocytosis Moderate; RBC 3.27 m/uL (3.80-5.40); RDW 18.6 % (11.5-15.5); WBC 5.6 k/uL (3.8-10.6)
[2021-05-21] MEDS: FERROUS SULFATE 325 MG TAB PO SCH (20:17)
[2021-05-22] MEDS: SODIUM CHLORIDE 0.9% 1,000 ML IV SCH ×2 (01:19→09:05)
[2021-05-22] MEDS ORDERED: PEG 3350-NA SULF,BICARB,CL/KCL 4,000 ML BOTTLE PO ONE (09:00)
[2021-05-22] MEDS: LEVOTHYROXINE 125 MCG TAB PO SCH (09:05)
[2021-05-22] MEDS: lisinopriL 10 MG TAB PO SCH (09:05)
[2021-05-22] MEDS: PANTOPRAZOLE 40 MG/10 ML VIAL IVP SCH (09:05)
[2021-05-22] MEDS: DOCUSATE 100 MG CAP PO SCH (09:05)
[2021-05-22] MEDS: SENNOSIDES 8.6 MG TAB PO SCH (09:05)
[2021-05-22] MEDS: PRAVASTATIN SODIUM 20 MG TAB PO SCH (09:33)
[2021-05-22 10:16] LABS: Anisocytosis Slight; Basophils % (A) 1 %; Eosinophils # (A) 0.2 k/uL (0-0.7); Eosinophils % (A) 4 %; HCT 26.3 % (34.0-46.0); HGB 7.9 gm/dL (11.4-16.0); Hypochromasia Marked; Lymphocytes % (A) 25 %; MCH 24.1 pg (25.0-35.0); MCHC 30.1 g/dL (31.0-37.0); MCV 80.1 fL (80.0-100.0); Mean Platelet Volume 6.6; Microcytosis Slight; Monocytes # (A) 0.3 k/uL (0-1.0); Monocytes % (A) 8 %; Neutrophils # (A) 2.4 k/uL (1.3-7.7); Neutrophils % (A) 59 %; Platelet Count 437 k/uL (150-450); Poikilocytosis Moderate; RBC 3.28 m/uL (3.80-5.40); RDW 18.4 % (11.5-15.5)
[2021-05-22 10:22] LABS: ALT 12 U/L (4-34); AST 20 U/L (14-36); African American GFR (CKD) >90 (>60 ml/min/1.73 sqM); Albumin 3.5 g/dL (3.5-5.0); Albumin/Globulin Ratio 1.4; Alkaline Phosphatase 46 U/L (38-126); Anion Gap 6 mmol/L; Blood Urea Nitrogen 8 mg/dL (7-17); Carbon Dioxide 21 mmol/L (22-30); Chloride 110 mmol/L (98-107); Globulin 2.5 g/dL; Glucose 99 mg/dL (74-99); Non-African American GFR(CKD) 81 (>60 ml/min/1.73 sqM); Potassium 4.4 mmol/L (3.5-5.1); Sodium 137 mmol/L (137-145); Total Bilirubin 0.4 mg/dL (0.2-1.3)
--- NOTE | 2021-05-22 10:39 | P.PN ---
Subjective This is a pleasant 71-year-old lady, well-known to my practice, who was having some shortness of breath, apparently this started 2 months ago, she has a known history of hypertension and hypothyroidism, she was in [place], celebrating her 7 TS per day. 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 Patient had strawberry duck daily, and is on aspirin, takes Aleve when necessary for arthritis pain, when she tripped and fell in December, and was seeing a chiropractor for this. She was seen in the clinic, for which labs were done, x-ray was done at the chiropractor, for which it was noted that she has some tracheal deviation. And a large hiatal hernia. She also has some workup for this, to include a CAT scan of the chest and neck., hemoglobin was 6.2 she has had coffee-ground emesis, in January none since, patient cannot express the call of her stools, her last colonoscopy was [address] Thurman, and was normal. No family history of colon cancer, and was scheduled to have a 10 year surveillance. However this time, with the blood loss anemia, she was requested to be seen in the emergency room, to be worked up. Next Emergency room, hemoglobin was 6.6, INR 0.9, sodium 135, creatinine of 0.8 albumin is normal, Hemoccult is positive, and milian virus negative. She required one unit of packed red blood cells, there is microcytosis and hypochromasia and laboratories, troponin is negative. Total bili and other liver function test is normal, consults were made with Dr. 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 Munson is covering 05/21: Patient examined at the bedside. Patient expresses she wants to be discharged home today, discussed that her hemoglobin has dropped to 7.2 today. She is agreeable to stay, will repeat another hemoglobin later on today. If hemoglobin drops further she may require another blood transfusion Surgery plans to do upper and lower GI studies. Patient reports she had a large hard bowel movement yesterday that did have bright red blood. She was started on stool softeners. Her vitals are stable she is afebrile with a temperature of 98.0, heart rate of 62, blood pressure 126/67, 96% on room air. 05/22: Patient resting in bed. Complains of slight cough this morning. Jennifer ntive spirometer ordered. Repeat hemoglobin 7.9, will continue to monitor her hemoglobin and if needed transfuse again. Patient will be starting the prep for colonoscopy and EGD planned for tomorrow. Vital signs are stable temperature 98.2, heart rate 64, blood pressure 107/66, she's 96% on room air. Objective - Vital Signs Vital signs: Vital Signs Temp 98.2 F 05/22/21 04:10 Pulse 70 05/22/21 09:06 Resp 18 05/22/21 04:10 BP 128/76 05/22/21 09:06 Pulse Ox 96 05/22/21 04:10 Intake & Output 05/21/21 05/22/21 05/22/21 18:59 06:59 18:59 Intake Total 1660 2300 Balance 1660 2300 Weight 107.5 kg Intake: Intake, IV Titration 1660 1560 Amount Sodium Chloride 0.9% 1, 1560 1560 000 ml @ 130 mls/hr IV . Q7H42M [facility] Rx#:[id number] Sodium Ferric Gluconat- 100 Sucrose 125 mg In Sodium Chloride 0.9% 100 ml @ 100 mls/hr IVPB DAILY [facility] Rx#:[id number] Oral 740 Other: # Voids 1 - Exam - Constitutional General appearance: Present: cooperative, no acute distress, obese. - EENT Eyes: Present: EOMI, PERRLA, normal appearance ENT: Present: hearing grossly normal, normal oropharynx - Respiratory Respiratory: bilateral: CTA, negative: diminished, dullness, rales, rhonchi - Cardiovascular Rhythm: regular Heart sounds: normal: S1, S2 - Gastrointestinal General gastrointestinal: Present: normal bowel sounds, soft. Absent: di stended, hepatomegaly, organomegaly, tenderness - Neurologic Neurologic: Present: CNII-XII intact, focal deficits - Musculoskeletal Musculoskeletal: Present: gait normal, strength equal bilaterally - Psychiatric Psychiatric: Present: A&O x's 3, appropriate affect, intact judgment & insight - Labs CBC & Chem 7: 05/22/21 09:36 05/22/21 09:36 Labs: Abnormal Lab Results - Last 24 Hours (Table) 05/21/21 05/22/21 05/22/21 Range/Units 18:33 09:36 09:36 RBC 3.27 L 3.28 L (3.80-5.40) m/uL Hgb 7.9 L 7.9 L (11.4-16.0) gm/dL Hct 26.4 L 26.3 L (34.0-46.0) % MCH 24.1 L 24.1 L (25.0-35.0) pg MCHC 29.9 L 30.1 L (31.0-37.0) g/dL RDW 18.6 H 18.4 H (11.5-15.5) % Chloride 110 H (98-107) mmol/L Carbon Dioxide 21 L (22-30) mmol/L Total Protein 6.0 L (6.3-8.2) g/dL Assessment and Plan Plan: 1. Symptomatic blood loss anemia, suspect upper GI bleed, with exposure to NSAIDs and aspirin, aspirin is discontinued. General surgery is on consult and plans for an EGD and colonoscopy. Will continue with Protonix 40 mg twice a day, status post 1 unit of packed red blood cells. Hemoglobin remained stable today, will continue to monitor, planning on colonoscopy and EGD tomorrow 2. Hypothyroidism, for which she is on levothyroxine, 125 g daily next 3. Hypertension on lisinopril 10 mg daily 4 hyperlipidemia, on the pravastatin l 20 g daily 5. Abnormal findings in chest CT, there is no tracheal deviation, however has indeterminate pulmonary nodule on the right, recommendation for CAT scan to be repeated in 6-12 months no tracheal deviation noted 6. Hiatal hernia with partial intertarsal thoracic stomach with intermittent indigestion GERD precautions, general surgery to see, for any future Melita fundoplication if needed 5. History of colonoscopy 5 years ago, was given [address] Ahmadi patient denies any hematochezia 6. GI prophylaxis, on PPI 7. DVT prophylaxis, early ambulation, no chemical prophylaxis secondary to GI bleed The above impression and plan of care have been discussed and directed by signing physician. Ivett Lazcano nurse practitioner acting as scribe for signing physician.
--- NOTE | 2021-05-22 10:43 | P.PN ---
Progress Note - Text Progress Note Date: 05/22/21 Patient feels well. Her hemoglobin 7.9. On exam vital signs are stable. Abdomen soft. Patient was scheduled for EGD colonoscopy in a.m.
[2021-05-22 12:36] LABS: Polychromasia Present
[2021-05-22] MEDS ORDERED: PANTOPRAZOLE 40 MG TABLET PO SCH (21:00)
[2021-05-22] MEDS: FERROUS SULFATE 325 MG TAB PO SCH (21:09)
[2021-05-23] MEDS: LEVOTHYROXINE 125 MCG TAB PO SCH (06:04)
[2021-05-23] MEDS: PANTOPRAZOLE 40 MG/10 ML VIAL IVP SCH (07:46)
[2021-05-23 08:01] LABS: Anisocytosis Slight; Basophils % (A) 1 %; Eosinophils # (A) 0.2 k/uL (0-0.7); Eosinophils % (A) 4 %; HGB 7.5 gm/dL (11.4-16.0); Hypochromasia Marked; Lymphocytes % (A) 23 %; MCV 82.6 fL (80.0-100.0); Mean Platelet Volume 6.7; Monocytes # (A) 0.3 k/uL (0-1.0); Monocytes % (A) 8 %; Neutrophils # (A) 2.6 k/uL (1.3-7.7); Neutrophils % (A) 61 %; Platelet Count 353 k/uL (150-450); Poikilocytosis Slight; RBC 3.15 m/uL (3.80-5.40); RDW 18.8 % (11.5-15.5); WBC 4.2 k/uL (3.8-10.6)
[2021-05-23] MEDS ORDERED: LIDOCAINE 1% INJ 10MG/ML (20 ML MDV) ONE (14:23)
[2021-05-23] MEDS ORDERED: PROPOFOL 10 MG/ML 20 ML VIAL IV ONE (14:23)
[2021-05-23] MEDS ORDERED: LACTATED RINGERS 1,000 ML IV ONE (14:25)
--- NOTE | 2021-05-23 14:47 | P.OP ---
Date of Procedure: 05/23/21 Preoperative Diagnosis: Anemia, GI bleed Postoperative Diagnosis: Large hiatal hernia with intrathoracic stomach Procedure(s) Performed: EGD Anesthesia: MAC Surgeon: Tonny Munson Pathology: other (Esophagus) Condition: stable Disposition: PACU Description of Procedure: The patient's placed on the endoscopy table in the lateral position. She received IV sedation. The gastro-/oropharynx passed in the esophagus and into the stomach. The patient a very large hiatal hernia approximately two thirds of her stomach was intrathoracic. The pylorus could not be cannulated due to torsion and and angulation of the stomach. Scope was brought back the GE junction was at 30 cm. The distal esophagus appeared inflamed. This was biopsied. The proximal esophagus. Normal. Scope was then withdrawn for patient. There is no unsteady acute upper GI bleed. Next digital rectal exam was performed, this revealed no abnormalities. Flexible colonoscope was then placed patient anus passed throughout the entire colon. Ileocecal valve was visualized. The cecum, ascending and transverse colon appeared normal. The in the descending; there was mild diverticulosis. Scope was brought back the rectum this appeared normal. Scope was withdrawn for patient. Visibly the patient's anemia was related to her large hiatal hernia and intrathoracic stomach
[2021-05-23 16:02] VITALS: BP 167/76; PULSE 80; RESP 19; TEMP 98.6
[2021-05-23] MEDS: lisinopriL 10 MG TAB PO SCH (16:25)
[2021-05-23] MEDS: PRAVASTATIN SODIUM 20 MG TAB PO SCH (16:25)
[2021-05-23] MEDS: DOCUSATE 100 MG CAP PO SCH (16:32)
[2021-05-23] MEDS: SENNOSIDES 8.6 MG TAB PO SCH (16:32)
--- NOTE | 2021-05-27 07:57 | P.DS ---
Providers Date of admission: 05/19/21 20:51 Expected date of discharge: 05/23/21 Attending physician: Asha Santiago Consults: 05/19/21 20:52 Consult Physician Routine Consulting Provider: Tonny Munson Consult Reason/Comments: GI bleed, anemia Do you want consulting provider notified?: Already Contacted Primary care physician: [facility] Course: This is a pleasant 71-year-old lady, well-known to my practice, who was having some shortness of breath, apparently this started 2 months ago, she has a known history of hypertension and hypothyroidism, she was in [place], celebrating her 7 TS per day. 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 Patient had strawberry duck daily, and is on aspirin, takes Aleve when necessary for arthritis pain, when she tripped and fell in December, and was seeing a chiropractor for this. She was seen in the clinic, for which labs were done, x-ray was done at the chiropractor, for which it was noted that she has some tracheal deviation. And a large hiatal hernia. She also has some workup for this, to include a CAT scan of the chest and neck., hemoglobin was 6.2 she has had coffee-ground emesis, in January none since, patient cannot express the call of her stools, her last colonoscopy was [address] Thurman, and was normal. No family history of colon cancer, and was scheduled to have a 10 year surveillance. However this time, with the blood loss anemia, she was requested to be seen in the emergency room, to be worked up. Next Emergency room, hemoglobin was 6.6, INR 0.9, sodium 135, creatinine of 0.8 albumin is normal, Hemoccult is positive, and milian virus negative. She required one unit of packed red blood cells, there is microcytosis and hypochromasia and laboratories, troponin is negative. Total bili and other liver function test is normal, consults were made with Dr. 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 Munson is covering 05/21: Patient examined at the bedside. Patient expresses she wants to be discharged home today, discussed that her hemoglobin has dropped to 7.2 today. She is agreeable to stay, will repeat another hemoglobin later on today. If hemoglobin drops further she may require another blood transfusion Surgery plans to do upper and lower GI studies. Patient reports she had a large hard bowel movement yesterday that did have bright red blood. She was started on stool softeners. Her vitals are stable she is afebrile with a temperature of 98.0, heart rate of 62, blood pressure 126/67, 96% on room air. 05/22: Patient resting in bed. Complains of slight cough this morning. Incentive spirometer ordered. Repeat hemoglobin 7.9, will continue to monitor her hemoglobin and if needed transfuse again. Patient will be starting the prep for colonoscopy and EGD planned for tomorrow. Vital signs are stable temperature 98.2, heart rate 64, blood pressure 107/66, she's 96% on room air. 05/23: Repeat hemoglobin is 7.5. Patient underwent EGD with Dr. Munson that revealed large hiatal hernia and intrathoracic stomach. Patient was cleared for discharge. Patient discharged in stable condition. Discharge diagnoses 1. Symptomatic blood loss anemia, suspect upper GI bleed, with exposure to NSAIDs and aspirin, aspirin is discontinued. 2. Hypothyroidism 3. Hypertension 4. Hyperlipidemia 5. Abnormal findings in chest CT, indeterminate pulmonary nodule on the right, recommendation for CAT scan to be repeated in 6-12 months. 6. Hiatal hernia with partial intertarsal thoracic stomach with intermittent indigestion GERD precautions 5. History of colonoscopy 5 years ago, was given [address] Ahmadi The above impression and plan of care have been discussed and directed by signing physician. Pam Yee nurse practitioner acting as scribe for signing physician. Patient Condition at Discharge: Good Plan - Discharge Summary Discharge Rx Participant: No New Discharge Prescriptions: New Sennosides [Senokot] 8.6 mg PO DAILY tab Continue Aspirin EC [Ecotrin Low Dose] 81 mg PO DAILY lisinopriL [Zestril] 10 mg PO DAILY Vitamin E 400 unit PO HS Ferrous Sulfate [Iron (65 MG Elemental)] 325 mg PO HS Pravastatin Sodium [Pravachol] 20 mg PO DAILY Ascorbic Acid [Vitamin C] 500 mg PO DAILY Levothyroxine Sodium 125 mcg PO DAILY Discharge Medication List Ascorbic Acid [Vitamin C] 500 mg PO DAILY 05/19/21 [History] Aspirin EC [Ecotrin Low Dose] 81 mg PO DAILY 05/19/21 [History] Ferrous Sulfate [Iron (65 MG Elemental)] 325 mg PO HS 05/19/21 [History] Levothyroxine Sodium 125 mcg PO DAILY 05/19/21 [History] Pravastatin Sodium [Pravachol] 20 mg PO DAILY 05/19/21 [History] Vitamin E 400 unit PO HS 05/19/21 [History] lisinopriL [Zestril] 10 mg PO DAILY 05/19/21 [History] Sennosides [Senokot] 8.6 mg PO DAILY tab 05/23/21 [Rx] Follow up Appointment(s)/Referral(s): Asha Santiago MD [Primary Care Provider] - 05/25/21 10:30 am Tonny Munson MD [STAFF PHYSICIAN] - 05/31/21 2:45 pm Patient Instructions/Handouts: Hiatal Hernia (DC), Gastrointestinal Bleeding (DC) Discharge Disposition: HOME SELF-CARE
== END 2021-05-23 16:57 | disposition home or self-care (01) | DRG 378 ==
LOC: EC 17:10 → 3SCARD 20:51 → 5NMEDONC 05-20 12:37
PROVIDERS: ADMIT Family Medicine; ATTEND Family Medicine
PROC: 30233N1 Transfusion of Nonautologous Red Blood Cells into Peripheral Vein, Percutaneous Approach (ICD-10-PCS; 2021-05-19)
PROC: 0DD48ZX Extraction of Esophagogastric Junction, Via Natural or Artificial Opening Endoscopic, Diagnostic (ICD-10-PCS; principal; 2021-05-23 07:30)
DX: K92.2 Gastrointestinal hemorrhage, unspecified (principal); D62 Acute posthemorrhagic anemia; K44.9 Diaphragmatic hernia without obstruction or gangrene; D50.8 Other iron deficiency anemias; K57.30 Diverticulosis of large intestine without perforation or abscess without bleeding; E03.9 Hypothyroidism, unspecified; E78.5 Hyperlipidemia, unspecified; I10 Essential (primary) hypertension; J39.8 Other specified diseases of upper respiratory tract; Z20.822 Contact with and (suspected) exposure to COVID-19; K21.9 Gastro-esophageal reflux disease without esophagitis; M19.90 Unspecified osteoarthritis, unspecified site; W01.0XXA Fall on same level from slipping, tripping and stumbling without subsequent striking against object, initial encounter; Z79.82 Long term (current) use of aspirin; Z79.890 Hormone replacement therapy; Z79.899 Other long term (current) drug therapy; Z91.81 History of falling; Z98.51 Tubal ligation status
CPT/HCPCS: 36415; 43239; 45378; 70491; 71260; 80053; 82272; 82728; 83540; 83550; 83605; 83735; 84484; 85025; 85027; 85610; 85730; 86850; 86900; 86901; 86920; 87635; 88305; 93005; 96374; 99285

== ENCOUNTER → 2021-06-03 | Outpatient (CLI) | payer MEDICARE ==
[2021-06-03 15:59] LABS: Anisocytosis Moderate; Basophils % (A) 0 %; Eosinophils # (A) 0.1 k/uL (0-0.7); Eosinophils % (A) 2 %; HCT 35.7 % (34.0-46.0); Hypochromasia Marked; Lymphocytes # (A) 1.4 k/uL (1.0-4.8); Lymphocytes % (A) 26 %; MCH 25.6 pg (25.0-35.0); MCHC 30.1 g/dL (31.0-37.0); MCV 84.9 fL (80.0-100.0); Mean Platelet Volume 7.5; Microcytosis Slight; Monocytes # (A) 0.3 k/uL (0-1.0); Monocytes % (A) 5 %; Neutrophils # (A) 3.5 k/uL (1.3-7.7); Neutrophils % (A) 65 %; Platelet Count 376 k/uL (150-450); Poikilocytosis Slight; RBC 4.21 m/uL (3.80-5.40); RDW 20.3 % (11.5-15.5); WBC 5.4 k/uL (3.8-10.6)
[2021-06-03 16:10] LABS: HGB 10.8 gm/dL (11.4-16.0)
== END | disposition home or self-care (01) ==
LOC: LABPAT 14:57
PROVIDERS: ATTEND Surgery
DX: Z01.812 Encounter for preprocedural laboratory examination (principal); K21.00 Gastro-esophageal reflux disease with esophagitis, without bleeding; D64.9 Anemia, unspecified
CPT/HCPCS: 85025

== ENCOUNTER 2021-06-10 07:15 | Day surgery (SDC) | payer MEDICARE ==
[~2021-06-10 07:15] MED LIST: ACETAMINOPHEN TAB 500 MG TAB PO PRN; DEXAMETHASONE SOD PHOSPHATE 4 MG/ML 1 ML VIAL IV ONE; HEPARIN SODIUM,PORCINE/PF 5,000 UNIT/0.5 ML SYRINGE SQ PRN; ONDANSETRON 4 MG/2 ML VIAL IVP ONE
[2021-06-10] MEDS: LACTATED RINGERS 1,000 ML IV SCH (08:08)
[2021-06-10] MEDS ORDERED: LIDOCAINE 1% (10MG/ML) FOR IV START INTRADERMA ONE (08:09)
[2021-06-10 08:39] LABS: Anisocytosis Slight; HCT 34.6 % (34.0-46.0); HGB 10.6 gm/dL (11.4-16.0); Hypochromasia Marked; MCH 25.6 pg (25.0-35.0); MCHC 30.7 g/dL (31.0-37.0); MCV 83.5 fL (80.0-100.0); Mean Platelet Volume 7.2; Microcytosis Slight; Platelet Count 288 k/uL (150-450); RBC 4.14 m/uL (3.80-5.40); RDW 19.1 % (11.5-15.5); WBC 3.9 k/uL (3.8-10.6)
--- NOTE | 2021-06-10 08:41 | P.GSHP ---
History of Present Illness H&P Date: 06/10/21 Chief Complaint: Intrathoracic stomach, hiatal hernia This a 8-year-old female who presents today for laparoscopic repair of large hiatal hernia. Patient has intrathoracic stomach. She's had issues with dysphagia and gastritis and GERD. Past Medical History Past Medical History: Blood Disorder, GERD/Reflux, Hyperlipidemia, Hypertension, Thyroid Disorder Additional Past Medical History / Comment(s): Hx of and recent anemia/on iron for years. Fall in December 2020 with continued limited ROM to right side of neck. Recent abnormal chest xray/tracheal deviation, states feels full after few bites of food/burps and occasionally food comes up. Hypothyroid. Chronic right knee pain. History of Any Multi-Drug Resistant Organisms: None Reported Past Surgical History: Breast Surgery, Section, Tonsillectomy, Tubal Ligation Additional Past Surgical History / Comment(s): Left breast benign biopsy, colonoscopy. Past Anesthesia/Blood Transfusion Reactions: No Reported Reaction, Motion Sickness Additional Past Anesthesia/Blood Transfusion Reaction / Comment(s): Pt received blood 05/19/21 without reaction. Past Psychological History: No Psychological Hx Reported Smoking Status: Never smoker Past Alcohol Use History: Occasional Past Drug Use History: None Reported - Past Family History Father Family Medical History: Myocardial Infarction (CO) Additional Family Medical History / Comment(s): Father with his 7th CO, he had his first CO in his 40s. Brother(s) Family Medical History: Myocardial Infarction (CO) Additional Family Medical History / Comment(s): Brother had 2 MIs and with his 2nd one at the age of 46 yrs. Medications and Allergies Home Medications Medication Instructions Recorded Confirmed Type Ascorbic Acid [Vitamin C] 500 mg PO DAILY 05/19/21 06/07/21 History Ferrous Sulfate [Iron (65 MG 325 mg PO HS 05/19/21 06/07/21 History Elemental)] Levothyroxine Sodium 125 mcg PO QAM 05/19/21 06/07/21 History Pravastatin Sodium [Pravachol] 20 mg PO QAM 05/19/21 06/10/21 History Vitamin E 400 unit PO HS 05/19/21 06/07/21 History lisinopriL [Zestril] 10 mg PO QAM 05/19/21 06/07/21 History Cyanocobalamin [Vitamin B-12] 500 mcg PO DAILY 06/07/21 06/07/21 History Omeprazole 40 mg PO AC-BID PRN 06/07/21 06/10/21 History Allergies Allergy/AdvReac Type Severity Reaction Status Date / Time codeine Allergy Rash/Hives Verified 06/07/21 10:06 Surgical - Exam Vital Signs Temp Pulse Resp BP Pulse Ox 98.0 F 73 16 151/68 99 06/10/21 07:43 06/10/21 07:43 06/10/21 07:43 06/10/21 07:43 06/10/21 07:43 - General well developed, well nourished, no distress - Eyes PERRL - ENT normal pinna - Neck no masses - Respiratory normal expansion - Cardiovascular Rhythm: regular - Abdomen Abdomen: soft, non tender Results - Labs 06/10/21 07:58 Abnormal Lab Results - Last 24 Hours (Table) 06/10/21 Range/Units 07:58 Hgb 10.6 L (11.4-16.0) gm/dL MCHC 30.7 L (31.0-37.0) g/dL RDW 19.1 H (11.5-15.5) % Assessment and Plan Assessment: Large paraesophageal hiatal hernia with intrathoracic stomach. Patient will undergo laparoscopic repair.
[2021-06-10] MEDS ORDERED: fentaNYL (PF) 50 MCG/ML 2 ML AMP ONE (09:07)
[2021-06-10] MEDS ORDERED: MIDAZOLAM 2 MG/2 ML VIAL ONE (09:07)
[2021-06-10] MEDS ORDERED: SUCCINYLCHOLINE CHLORIDE 100 MG/5 ML SYR IV ONE (09:07)
[2021-06-10] MEDS ORDERED: PROPOFOL 10 MG/ML 20 ML VIAL IV ONE (09:07)
[2021-06-10] MEDS ORDERED: GLYCOPYRROLATE 0.2 MG/ML 2 ML VIAL ONE (09:07)
[2021-06-10] MEDS ORDERED: ePHEDrine 50 MG/ML 1 ML AMP ONE (09:07)
[2021-06-10] MEDS ORDERED: NEOSTIGMINE 1 MG/ML 10 ML VIAL ONE (09:07)
[2021-06-10] MEDS ORDERED: KETOROLAC 15 MG/ML 1 ML VIAL ONE (09:07)
[2021-06-10] MEDS ORDERED: LIDOCAINE 1% INJ 10MG/ML (20 ML MDV) ONE (09:07)
[2021-06-10] MEDS ORDERED: ROCURONIUM 10 MG/ML (5 ML VIAL) IV ONE (09:07)
[2021-06-10] MEDS ORDERED: BUPIVACAIN-EPI 0.25%-1:200,000 30 ML VIAL SQ ONE (09:34)
[2021-06-10] MEDS ORDERED: ONDANSETRON 4 MG/2 ML VIAL IVP PRN (10:38)
[2021-06-10] MEDS ORDERED: HYDROmorphone 1 MG/ML 1 ML SYRINGE IVP PRN (10:38)
--- NOTE | 2021-06-10 10:38 | P.OP ---
Date of Procedure: 06/10/21 Preoperative Diagnosis: Paraesophageal esophageal hernia Postoperative Diagnosis: Paraesophageal hernia Procedure(s) Performed: Laparoscopic repair of paraesophageal hernia with mesh Anesthesia: CATHY Surgeon: Tonny Munson Estimated Blood Loss (ml): 10 Pathology: none sent Condition: stable Disposition: PACU Description of Procedure: The patient was placed on the operating table in the supine position. The patient received general anesthesia. And was placed in dorsal lithotomy position. The patient was prepped and draped in the usual sterile fashion. The skin incision sites were anesthetized with 1% local Xylocaine. The skin was incised in the left periumbilical area and then using a blade less 5 mm trocar under direct visualization panel cavity was entered. After adequate insufflation the laparoscope was then placed into the peritoneal cavity. Next a 5 mm trochars placed in the right epigastric position. Another 5 millimeter trocar the right lateral position. Another 5 millimeter trocar in the left lateral position a 5 mm trocar is placed in the left epigastric position. And then the initial 5 mm trocar was exchanged for a 10 mm trocar. The left lateral lobe liver was retracted. The patient had a large paraesophageal hernia. Approximately 60% stomach was in the chest. The stomach was grasped and reduced into the peritoneal cavity. The hernia sac was then dissected with the Harmonic scissors. The stomach was completely reduced into the to the peritoneal cavity. The esophagus was seen. There is no injury to the stomach or esophagus. The crura was repaired in the retrocrural fashion using 2-0 Ethibond suture. A piece of [place] bio a mesh was placed over top apparent secured with 2-0 Ethibond suture. The 58-Nepali bougie dilator was placed into the stomach without difficulty. There was no injury seen to the stomach or esophagus. The dilator was then withdrawn. The abdomen was irrigated there is no bleeding seen. The trochars were then withdrawn and then skin incision sites were closed using 3-0 Monocryl suture Steri-Strips are applied. Patient thought procedure well and sent to recovery room in stable condition.
[2021-06-10] MEDS: HYDROmorphone 0.5 MG/0.5 ML SYRINGE IVP PRN ×3 (10:51→11:02)
[2021-06-10] MEDS ORDERED: SODIUM CHLORIDE 0.9% 1,000 ML IV ONE ×2 (11:07)
[2021-06-10 13:26] VITALS: BMI 39.4
[2021-06-10] MEDS: D5-0.45% NACL WITH KCL 20MEQ/L 1,000 ML IV SCH ×2 (15:07→22:49)
--- NOTE | 2021-06-10 16:21 | P.CONS ---
History of Present Illness - Reason for Consult Consult date: 06/10/21 - History of Present Illness The patient is a 71-year-old female with a PMH of hypertension, hypothyroidism, and hyperlipidemia who was admitted to the hospital for an elective paraesophageal laparoscopic hernia repair. The patient underwent a procedure earlier today and was seen postoperatively. She reported excellent control her pain, currently at a 1 out of 10. She has been out of bed and has been passing urine but has not had status or bowel movement as of yet. She further denied experiencing nausea, vomiting, fever, chills, cough. Denied chest pain, shortness of breath, or sore throat. She reports compliance with all her medications at home. Review of systems: Pertinent positives and negatives as discussed in HPI, a complete review of systems was performed and all other systems are negative. Physical examination: General: non toxic, no distress, appears at stated age, obese Derm: no unusual rashes/lesions no unusual ecchymoses, warm, dry Head: atraumatic, normocephalic, symmetric Eyes: EOMI, no lid lag, anicteric sclera, pupils equal round reactive to light ENT: Nose and ears atraumatic, no thrush, no pharyngeal erythema Neck: No thyromegaly, no cervical lymphadenopathy, trachea midline, supple Mouth: no lip lesion, mucus membranes moist Cardiovascular: S1S2 reg, no murmur, positive posterior tibial pulse bilateral, no edema, capillary refill less than 2 seconds Lungs: CTA bilateral, no rhonchi, no rales , no accessory muscle use Abdominal: Postsurgical with laparoscopic incisions closed, soft, nontender to palpation, no guarding, no appreciable organomegaly Ext: no gross muscle atrophy, muscle strength 5 out of 5 in all 4 extremities grossly, no contractures, Neuro: CN II-XI grossly intact, light touch intact all 4 extremities, finger to nose within normal limits, Psych: Alert, oriented, appropriate affect Assessment/plan Chronic conditions: Hypothyroidism, hyperlipidemia, hypertension -Continue with home meds Status post laproscopic paraesophageal hernia repair -Defer management including pain control to the surgery service We appreciate this opportunity to be involved in this patient's care. We will follow the patient with you. For any further questions, please not hesitate to contact the sound inpatient team. Past Medical History Past Medical History: Blood Disorder, GERD/Reflux, Hyperlipidemia, Hypertension, Thyroid Disorder Additional Past Medical History / Comment(s): Hx of and recent anemia/on iron for years. Fall in December 2020 with continued limited ROM to right side of neck. Recent abnormal chest xray/tracheal deviation, states feels full after few bites of food/burps and occasionally food comes up. Hypothyroid. Chronic right knee pain. History of Any Multi-Drug Resistant Organisms: None Reported Past Surgical History: Breast Surgery, Section, Tonsillectomy, Tubal Ligation Additional Past Surgical History / Comment(s): Left breast benign biopsy, colonoscopy. Past Anesthesia/Blood Transfusion Reactions: No Reported Reaction, Motion Si ckness Additional Past Anesthesia/Blood Transfusion Reaction / Comm: Pt received blood 05/19/21 without reaction. Past Psychological History: No Psychological Hx Reported Additional Psychological History / Comment(s): Pt resides alone and is independent. She drives. No DME. Has a basement but rarely needs to go down there. Smoking Status: Never smoker Past Alcohol Use History: Occasional Past Drug Use History: None Reported - Past Family History Father Family Medical History: Myocardial Infarction (ME) Additional Family Medical History / Comment(s): Father with his 7th ME, he had his first ME in his 40s. Brother(s) Family Medical History: Myocardial Infarction (ME) Additional Family Medical History / Comment(s): Brother had 2 MIs and with his 2nd one at the age of 46 yrs. Medications and Allergies Home Medications Medication Instructions Recorded Confirmed Type Ascorbic Acid [Vitamin C] 500 mg PO DAILY 05/19/21 06/07/21 History Ferrous Sulfate [Iron (65 MG 325 mg PO HS 05/19/21 06/07/21 History Elemental)] Levothyroxine Sodium 125 mcg PO QAM 05/19/21 06/07/21 History Pravastatin Sodium [Pravachol] 20 mg PO QAM 05/19/21 06/10/21 History Vitamin E 400 unit PO HS 05/19/21 06/07/21 History lisinopriL [Zestril] 10 mg PO QAM 05/19/21 06/07/21 History Cyanocobalamin [Vitamin B-12] 500 mcg PO DAILY 06/07/21 06/07/21 History Omeprazole 40 mg PO AC-BID PRN 06/07/21 06/10/21 History Allergies Allergy/AdvReac Type Severity Reaction Status Date / Time codeine Allergy Rash/Hives Verified 06/07/21 10:06 Physical Exam Vitals: Vital Signs Temp Pulse Pulse Resp BP BP Pulse Ox 06/10/21 14:42 97.4 F L 68 18 151/80 96 06/10/21 13:42 64 18 151/82 95 06/10/21 13:11 67 18 150/78 94 L 06/10/21 12:41 58 L 18 149/81 95 06/10/21 12:27 63 18 152/85 94 L 06/10/21 12:13 63 18 130/84 94 L 06/10/21 11:56 63 18 148/78 93 L 06/10/21 11:40 97.7 F 58 L 18 150/72 90 L 06/10/21 11:15 62 16 162/67 95 06/10/21 11:00 68 18 155/65 95 06/10/21 10:45 63 16 181/96 98 06/10/21 10:30 97.3 F L 75 18 174/72 97 06/10/21 07:43 98.0 F 73 16 151/68 99 Intake and Output 06/10/21 06/10/21 06/10/21 06:59 14:59 22:59 Intake Total 1450 Output Total 10 Balance 1440 Intake: IV 1450 Output: Estimated Blood Loss 10 Other: Weight 104.4 kg Results CBC & Chem 7: 06/10/21 07:58 Labs: Abnormal Lab Results - Last 24 Hours (Table) 06/10/21 Range/Units 07:58 Hgb 10.6 L (11.4-16.0) gm/dL MCHC 30.7 L (31.0-37.0) g/dL RDW 19.1 H (11.5-15.5) %
--- NOTE | 2021-06-10 18:25 | FL ---
SINGLE CONTRAST ESOPHAGRAM: CLINICAL HISTORY: 71-year-old female rule out leak/obstruction status post Melita fundoplication. TECHNIQUE: Single contrast exam performed with 40 mL Isovue-370 contrast. Total fluoroscopy time: 42 seconds. Total images: 17. FINDINGS: The patient swallowed oral contrast without difficulty or delay. [id number] tertiary peristalti c waves are demonstrated. There is normal course and caliber of the thoracic esophagus. There is part ial clearance of ingested contrast into the stomach within initial delay in complete clearance from t he lower esophagus. However, after repeat swallow, subsequent prompt passage is demonstrated. Postsur gical change of Melita fundoplication. There is no evidence of contrast extravasation to suggest leak . There is trace post surgical free air below the right hemidiaphragm. IMPRESSION: No evidence for leak or obstruction status post Melita fundoplication. Trace postsurgical free air be low the right hemidiaphragm.
[2021-06-10] MEDS ORDERED: HYDROcodone/APAP 5-325MG 1 EACH TAB PO PRN (20:36)
[2021-06-11 01:07] VITALS: RESP 16
[2021-06-11 04:09] VITALS: TEMP 97.6
[2021-06-11] MEDS: D5-0.45% NACL WITH KCL 20MEQ/L 1,000 ML IV SCH (05:17)
[2021-06-11] MEDS: LACTATED RINGERS 1,000 ML IV SCH (05:55)
[2021-06-11] MEDS ORDERED: LEVOTHYROXINE 125 MCG TAB PO SCH (06:30)
[2021-06-11 08:51] VITALS: BP 151/82; PULSE 100
[2021-06-11] MEDS ORDERED: ENOXAPARIN 40 MG/0.4 ML SYRINGE SQ SCH (09:00)
[2021-06-11] MEDS ORDERED: PRAVASTATIN SODIUM 20 MG TAB PO SCH (09:00)
[2021-06-11] MEDS ORDERED: lisinopriL 10 MG TAB PO SCH (09:00)
--- NOTE | 2021-06-11 11:03 | P.DS ---
Providers Expected date of discharge: 06/11/21 Attending physician: Tonny Munson Consults: 06/10/21 10:38 Consult Physician Routine Consulting Provider: Asha Santiago Consult Reason/Comments: Medical management Do you want consulting provider notified?: Yes Primary care physician: Asha Santiago Hospital Course: Patient underwent elective hiatal hernia repair yesterday. Doing well today. Denies pain. Tolerating liquids. Upper GI shows no evidence of leak or obstruction. Abdominal examination is benign. Incisions are clean and dry. She would like to go home. We'll discharge. Follow-up Dr. Munson 1 week. Plan - Discharge Summary Discharge Rx Participant: Yes New Discharge Prescriptions: Continue lisinopriL [Zestril] 10 mg PO QAM Vitamin E 400 unit PO HS Ferrous Sulfate [Iron (65 MG Elemental)] 325 mg PO HS Pravastatin Sodium [Pravachol] 20 mg PO QAM Ascorbic Acid [Vitamin C] 500 mg PO DAILY Levothyroxine Sodium 125 mcg PO QAM Omeprazole 40 mg PO AC-BID PRN PRN Reason: Indigestion Cyanocobalamin [Vitamin B-12] 500 mcg PO DAILY Discharge Medication List Ascorbic Acid [Vitamin C] 500 mg PO DAILY 05/19/21 [History] Ferrous Sulfate [Iron (65 MG Elemental)] 325 mg PO HS 05/19/21 [History] Levothyroxine Sodium 125 mcg PO QAM 05/19/21 [History] Pravastatin Sodium [Pravachol] 20 mg PO QAM 05/19/21 [History] Vitamin E 400 unit PO HS 05/19/21 [History] lisinopriL [Zestril] 10 mg PO QAM 05/19/21 [History] Cyanocobalamin [Vitamin B-12] 500 mcg PO DAILY 06/07/21 [History] Omeprazole 40 mg PO AC-BID PRN 06/07/21 [History]
--- NOTE | 2021-06-11 13:34 | P.PN ---
Subjective Progress Note Date: 06/11/21 History of Present Illness: The patient is a 71-year-old female with a PMH of hypertension, hypothyroidism, and hyperlipidemia who was admitted to the hospital for an elective paraes ophageal laparoscopic hernia repair. The patient underwent a procedure earlier today and was seen postoperatively. She reported excellent control her pain, currently at a 1 out of 10. She has been out of bed and has been passing urine but has not had status or bowel movement as of yet. She further denied experiencing nausea, vomiting, fever, chills, cough. Denied chest pain, shortness of breath, or sore throat. She reports compliance with all her medications at home. 06/11: Patient is found resting comfortably in bed in no acute distress. Patient denies any shortness of breath difficulty breathing or chest pain. Her pain is well managed. She would like to go home today. She is tolerating a full liquid diet. Incision is clean and dry. She has been utilizing incentive spirometer. Review Of Systems: Constitutional: No fever, no chills, no night sweats. No weight change. No weakness, fatigue or lethargy. No daytime sleepiness. EENT: No headache. No blurred vision or double vision, no loss of vision. No loss of Hearing, no ringing in the ears, no dizziness. No nasal drainage or congestion. No epistaxis. No sore throat. Lungs: No shortness of breath, cough, no sputum production. No wheezing. Cardiovascular: No chest pain, no lower extremity edema. No palpitations. No paroxysmal nocturnal dyspnea. No orthopnea. No lightheadedness or dizziness. No syncopal episodes. Abdominal: no abdominal discomfort. No nausea, vomiting. no diarrhea. No constipation. No bloody or tarry stools. no loss of appetite. Genitourinary: No dysuria, increased frequency, urgency. No urinary retention. Musculoskeletal: No myalgias. No muscle weakness, no gait dysfunction, no frequent falls. No back pain. No neck pain. Integumentary: No wounds, no lesions. No rash or pruritus. No unusual bruising. No change in hair or nails. Neurologic: No aphasia. No facial droop. No change in mentation. No head injury. No headache. No paralysis. No paresthesia. Psychiatric: No depression. No anxiety. No mood swings. Endocrine: No abnormal blood sugars. No weight change. No excessive sweating or thirst. Physical exam: General Appearance: Alert, cooperative, no distress, appears stated age. Neck HEENT: Supple, no lymphadenopathy, no thyroid enlargement, no carotid bruits. Lungs: Clear to auscultation without crackles or wheezes no rhonchi, no deformity. Chest Wall: Chest wall normal expansion with deep inspiration no tenderness and no deformity was found on exam, no costochondral pain or discomfort. Heart: Regular rate and rhythm, S1, S2 normal, no murmur, rub or gallop. Back: Symmetric, no curvature, ROM normal, no CVA tenderness. Abdomen: Soft, non-tender, no rebound or rigidity, no hepatosplenomegaly. Extremities: Extremities normal, atraumatic, no cyanosis or edema. Pulses: 2+ and symmetric. Skin: Skin color, texture, tugor normal, no rashes or lesions. Neurologic: Alert oriented x3 cranial nerves II through XII intact, no motor deficit, no abnormal balance or gait Assessment/plan: 1. Status post laparoscopic paraesophageal hernia repair. 2. Hypothyroidism. Levothyroxine 125 mcg 3. Hyperlipidemia. Pravastatin 20 mg by mouth 4. Hypertension. Lisinopril 10 mg by mouth daily 5. Obesity 6. DVT prophylaxis. Early ambulation, KRISTIN hose 7. GI prophylaxis. Omeprazole 40 mg by mouth before meals twice a day as needed Discharge plan: Home today if cleared by general surgery Impression and plan of care have been directed as dictated by the signing physician. Queenie Alvarez nurse practitioner acting as scribe for signing physician. Objective - Vital Signs Vital signs: Vital Signs Temp 97.6 F 06/11/21 04:08 Pulse 100 06/11/21 08:51 Resp 16 06/11/21 04:08 BP 151/82 06/11/21 08:51 Pulse Ox 95 06/11/21 04:08 Intake & Output 06/10/21 06/11/21 06/11/21 18:59 06:59 18:59 Intake Total 1450 630 Output Total 10 250 Balance 1440 380 Weight 104.4 kg Intake: IV 1450 Oral 630 Output: Urine 250 Estimated Blood Loss 10 Other: # Voids 2 - Labs CBC & Chem 7: 06/10/21 07:58
== END 2021-06-11 12:47 ==
LOC: OR 07:15 → 6PED 10:33 → 5NMEDONC 23:57 → OR 06-11 12:47
PROVIDERS: ATTEND Surgery
DX: K44.9 Diaphragmatic hernia without obstruction or gangrene (principal); K21.9 Gastro-esophageal reflux disease without esophagitis; R13.10 Dysphagia, unspecified; E78.5 Hyperlipidemia, unspecified; I10 Essential (primary) hypertension; E03.9 Hypothyroidism, unspecified; D64.9 Anemia, unspecified; Z20.822 Contact with and (suspected) exposure to COVID-19; J39.8 Other specified diseases of upper respiratory tract; G89.29 Other chronic pain; M25.561 Pain in right knee; Z98.891 History of uterine scar from previous surgery; E66.9 Obesity, unspecified; Z68.39 Body mass index [BMI] 39.0-39.9, adult; Z98.51 Tubal ligation status; Z98.890 Other specified postprocedural states; I25.2 Old myocardial infarction; Z79.890 Hormone replacement therapy; Z79.899 Other long term (current) drug therapy; Z88.5 Allergy status to narcotic agent
CPT/HCPCS: 85027; 87635; 74210; 43282; C1781; J2250; J1100; J2710; J0690; J2405; J2001; J1650; J3010; J1885; J0330; J2704; J1170; Q9967; J1644